=== PATIENT | male | born 1985 ===

== ENCOUNTER 2019-05-22 14:36 | Emergency (ER) | payer SELFPAY ==
[~2019-05-22] VITALS: Ht 185.4 cm; Wt 79.4 kg
[2019-05-22 14:40] VITALS: BP 134/92
== END 2019-05-22 14:45 | disposition left against medical advice (07) ==
LOC: EDBD 14:36 → ER 14:42
DX: F10.129 Alcohol abuse with intoxication, unspecified (principal); Z53.21 Procedure and treatment not carried out due to patient leaving prior to being seen by health care provider; Y90.9 Presence of alcohol in blood, level not specified